=== PATIENT | male | born 1975 | race Caucasian/White ===

== ENCOUNTER 2017-04-14 19:30 | Emergency (ER) | payer BC ==
[~2017-04-14] VITALS: Ht 177.8 cm; Wt 116.9 kg
[~2017-04-14 19:30] MED LIST: AMOX875T PO; IBUP-1050 PO; MULT-506 PO
[2017-04-14 19:51] VITALS: TEMP 36.7; Ht 177.8 cm; Wt 116.9 kg
[2017-04-14] MEDS ORDERED: CYCLOBENZAPRINE HCL 10 MG TAB PO STA (20:25)
[2017-04-14] MEDS ORDERED: OXYCODONE/ACETAMINOPHEN 5-325 TAB PO STA (20:25)
[2017-04-14] MEDS ORDERED: IBUPROFEN 600 MG TAB PO STA (20:25)
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
[2017-04-14] MEDS ORDERED: DIPH-437 PO (20:52)
[2017-04-14] MEDS ORDERED: MULTTAB5 PO (20:52)
--- NOTE | 2017-04-14 21:14 | DIAGNOSTIC IMAGING REPORT ---
L-SPINE MIN 4 VIEWS ROUTINE CLINICAL HISTORY: 41 years-old Male presenting with mid to low back pain. TECHNIQUE: Frontal, bilateral oblique, lateral, and coned in lateral views of the lumbar spine were obtained. COMPARISON: None. FINDINGS: No scoliosis. Normal lumbar lordosis. Vertebral bodies maintain normal height and alignment. Minimal anterior osteophytosis noted at L3-4. Intervertebral disc spaces preserved. No radiographic evidence of compression deformity or subluxation. No gross evidence of osseous neural foraminal narrowing. No pars defect. Moderate stool burden in the right colon. IMPRESSION: Minimal degenerative change of the lumbar spine. No radiographic evidence of acute osseous injury. Electronically signed by: Anderson Newton M.D. 04/14/2017 9:13 PM Dictated Date/Time: 04/14/2017 9:12 PM
--- NOTE | 2017-04-14 21:16 | DIAGNOSTIC IMAGING REPORT ---
THORACIC SPINE 3 VIEWS ROUTINE CLINICAL HISTORY: 41 years-old Male presenting with mid to low back pain, left-sided back pain. TECHNIQUE: 3 views of the thoracic spine were obtained. COMPARISON: None. FINDINGS: Normal thoracic kyphosis. Vertebral bodies maintain normal height and alignment. Intervertebral disc spaces preserved. No advanced degenerative change. No radiographic evidence of a compression deformity or subluxation. Visualized portion of the thorax normal. IMPRESSION: Normal thoracic spine. Electronically signed by: Anderson Newton M.D. 04/14/2017 9:15 PM Dictated Date/Time: 04/14/2017 9:13 PM
[2017-04-14 21:55] VITALS: BP 107/67; PULSE 71; O2SAT 96
[2017-04-14] MEDS ORDERED: CYCL10TA6 PO (22:08)
[2017-04-14] MEDS ORDERED: OXYC-57 PO (22:08)
[2017-04-14] MEDS ORDERED: METH4PAK PO (22:09)
[2017-04-14] MEDS ORDERED: MOTRIN HOME PACK 600 MG (4)BTL PO ONE (22:15)
[2017-04-14] MEDS ORDERED: PERCOCET HOME PACK PO ONE (22:15)
== END 2017-04-14 22:20 | disposition home or self-care (01) ==
LOC: C.EDB 19:32 → C.EDD 22:20
DX: M54.5 Low back pain (principal)